=== PATIENT | female | born 2005 | race African-American/Black ===

== ENCOUNTER 2023-05-16 14:22 | Emergency (ER) | payer SELFPAY | END 2023-05-16 16:07 | disposition home or self-care (01) | LOC: MADERS 14:22 | DX: S16.1XXA Strain of muscle, fascia and tendon at neck level, initial encounter (principal); E04.9 Nontoxic goiter, unspecified; V43.53XA Car driver injured in collision with pick-up truck in traffic accident, initial encounter; Y93.I9 Activity, other involving external motion; Y92.410 Unspecified street and highway as the place of occurrence of the external cause | CPT/HCPCS: 70450; 72125 ==